=== PATIENT | male | born 1995 | race Caucasian/White ===

== ENCOUNTER → 2020-11-21 | Outpatient (CLI) | payer BC ==
[2020-11-21 09:45] LABS: ALBUMIN 4.3 g/dL (3.5-5.0); POTASSIUM 4.1 mmol/L (3.5-5.1)
[2020-11-21 09:46] LABS: CALCIUM 8.8 mg/dL (8.3-10.5)
[2020-11-21 09:48] LABS: TOTAL PROTEIN 7.1 g/dL (6.4-8.3)
[2020-11-21 09:50] LABS: TOTAL BILIRUBIN 0.3 mg/dL (0.2-1.2)
== END ==
LOC: LAB 09:01
PROVIDERS: Family Medicine
DX: Z00.00 Encounter for general adult medical examination without abnormal findings (principal)

== ENCOUNTER → 2021-01-06 | Outpatient (CLI) | payer BC | LOC: LAB 12:20 | DX: U07.1 COVID-19 (principal) ==

== ENCOUNTER → 2021-04-08 | Outpatient (CLI) | payer BC ==
[2021-04-08 16:20] LABS: BASO # 0.08 K/mm3 (0.02-0.10); EOS # 0.11 K/mm3 (0.04-0.40); EOS % 1.5 % (0.0-4.0); HEMOGLOBIN 15.6 g/dL (13.5-18.0); LYMPH# 1.93 K/mm3 (1.50-4.00); MEAN CELL VOLUME 86 fl (78-100); MEAN CORPUSCULAR HEMOGLOBIN 30 pg (27-31); MEAN CORPUSCULAR HGB CONC 35 g/dL (33-37); MEAN PLATELET VOLUME 10.2 fl (7.4-10.4); MONO # 0.81 K/mm3 (0.20-0.80); NEU # 4.37 K/mm3 (1.40-6.50); PLATELET COUNT 307 K/mm3 (130-400); RED BLOOD COUNT 5.26 M/mm3 (4.20-5.60); RED CELL DISTRIBUTION WIDTH 11.7 % (11.5-14.5); WHITE BLOOD COUNT 7.3 K/mm3 (4.8-10.8)
== END ==
LOC: LAB 15:55
PROVIDERS: Family Medicine
DX: R53.83 Other fatigue (principal); R00.2 Palpitations

== ENCOUNTER → 2021-11-16 | Outpatient (CLI) | payer BC ==
[2021-11-16 09:03] LABS: ALBUMIN 4.4 g/dL (3.5-5.0); POTASSIUM 4.4 mmol/L (3.5-5.1)
[2021-11-16 09:04] LABS: CALCIUM 9.6 mg/dL (8.3-10.5)
[2021-11-16 09:06] LABS: TOTAL PROTEIN 7.5 g/dL (6.4-8.3)
[2021-11-16 09:08] LABS: TOTAL BILIRUBIN 0.5 mg/dL (0.2-1.2)
== END ==
LOC: LAB 07:58
PROVIDERS: Family Medicine
DX: Z00.00 Encounter for general adult medical examination without abnormal findings (principal); G47.9 Sleep disorder, unspecified

== ENCOUNTER → 2021-11-23 | Outpatient (CLI) | payer BC ==
[2021-11-23 18:29] LABS: BASO # 0.08 K/mm3 (0.02-0.10); EOS # 0.15 K/mm3 (0.04-0.40); EOS % 2.5 % (0.0-4.0); HEMATOCRIT 44.6 % (42.0-52.0); HEMOGLOBIN 15.3 g/dL (13.5-18.0); LYMPH# 1.65 K/mm3 (1.50-4.00); MEAN CELL VOLUME 84 fl (78-100); MEAN CORPUSCULAR HEMOGLOBIN 29 pg (27-31); MEAN CORPUSCULAR HGB CONC 34 g/dL (33-37); MEAN PLATELET VOLUME 9.8 fl (7.4-10.4); MONO # 0.99 K/mm3 (0.20-0.80); PLATELET COUNT 280 K/mm3 (130-400); RED CELL DISTRIBUTION WIDTH 11.7 % (11.5-14.5)
== END ==
LOC: LAB 18:15
PROVIDERS: Nurse Practitioner Family
DX: J02.9 Acute pharyngitis, unspecified (principal); R53.83 Other fatigue

== ENCOUNTER → 2024-02-03 | Outpatient (CLI) | payer BC | LOC: LAB 07:37 | PROVIDERS: Family Medicine | DX: E78.41 Elevated Lipoprotein(a) (principal) ==